=== PATIENT | female | born 1960 | race Caucasian/White ===

== ENCOUNTER 2017-08-31 20:09 | Emergency (ER) | payer MEDICARE, MEDICAID ==
[~2017-08-31] VITALS: Ht 152.4 cm; Wt 68.0 kg
[2017-08-31 20:20] VITALS: BP 140/64
[2017-08-31 21:13] LABS: Basophils # (auto) 0 uL; Hemoglobin 10.2 g/dL (12.2-16.2); Monocytes # (auto) 0.4 uL; Neutrophils # (auto) 3.6 uL; Red Cell Distribution Width 16.7 % (11.8-14.3); White Blood Cell 6.4 10^3/uL (4.4-10.8)
[2017-08-31 21:15] LABS: Basophils % (auto) 0.6 % (0.0-2.0); Eosinophils # (auto) 0.1 uL; Eosinophils % (auto) 0.8 % (0.0-7.0); Hematocrit 31.7 % (36.0-46.0); Lymphocytes # (auto) 2.3 uL; Lymphocytes % (auto) 36.7 % (10.0-50.0); Mean Corpuscular Hemoglobin 25.1 pg (28.0-32.0); Mean Corpuscular Hgb Conc. 32.1 g/dL (32.0-36.0); Monocytes % (auto) 6.3 % (0.0-12.0); Neutrophils % (auto) 55.6 % (37.0-80.0); Nucleated Red Blood Cells % 0.1 %; Platelet Count (auto) 253 10^3/uL (140-450); Red Blood Cells 4.07 10^6/uL (4.0-5.20)
[2017-08-31 21:28] LABS: INR 0.93 (0.9-1.15); Partial Thromboplastin Time 25.8 sec (23.78-33.04)
[2017-08-31 21:30] LABS: Alanine Aminotransferase 15 U/L (13-56); Albumin 3.7 g/dL (3.4-5.0); Anion Gap 12 (5-15); Aspartate Aminotransferase 17 U/L (15-37); BUN/Creatinine Ratio 14.7; Blood Urea Nitrogen 16 mg/dL (7-18); Calcium 8.6 mg/dL (8.5-10.1); Carbon Dioxide 23 mmol/L (21-32); Chloride 110 mmol/L (98-107); GFR African American 66 mL/min; GFR Non-African American 55 mL/min; Glucose 94 mg/dL (74-106); Magnesium 2.1 mg/dL (1.6-2.6); Sodium 145 mmol/L (136-145)
[2017-08-31 21:35] LABS: Alkaline Phosphatase 126 U/L (45-117); Bilirubin, Total 0.3 mg/dL (0.2-1.0); Total Protein 7.7 g/dL (6.4-8.2)
== END 2017-08-31 22:40 | disposition left against medical advice (07) ==
LOC: EDBD 20:09 → ER 20:09
DX: R06.02 Shortness of breath (principal); M79.601 Pain in right arm; Z53.21 Procedure and treatment not carried out due to patient leaving prior to being seen by health care provider; Z95.0 Presence of cardiac pacemaker; Z98.890 Other specified postprocedural states
CPT/HCPCS: 36415; 71046; 80053; 83735; 83880; 84484; 85025; 85379; 85610; 85730; 93005